=== PATIENT | male | born 1950 | race Caucasian/White ===

== ENCOUNTER 2023-02-28 07:06 | Day surgery (SDC) | payer MEDICARE ==
[2023-02-27 09:53] VITALS: BMI 28.8
[2023-02-28] MEDS ORDERED: EPINEPHrine 1 MG/ML AMP ONE (08:57)
[2023-02-28] MEDS ORDERED: PROPOFOL 20 ML ONE (08:58)
[2023-02-28] MEDS ORDERED: Ketamine 50 MG/ML (10ML VIAL) ONE (09:00)
[2023-02-28] MEDS ORDERED: Oxymetazoline HCl 0.05% ( 15 ML ) ONE (09:02)
== END 2023-02-28 11:00 | disposition home or self-care (01) ==
LOC: CSHSDC 07:06
PROVIDERS: ATTEND Otolaryngology Otolaryngic Allergy
PROC: 3E0F8GC Introduction of Other Therapeutic Substance into Respiratory Tract, Via Natural or Artificial Opening Endoscopic (ICD-10-PCS; principal; 2023-02-28)
DX: R49.0 Dysphonia (principal); J38.00 Paralysis of vocal cords and larynx, unspecified; E78.5 Hyperlipidemia, unspecified; K21.9 Gastro-esophageal reflux disease without esophagitis; I10 Essential (primary) hypertension; I25.10 Atherosclerotic heart disease of native coronary artery without angina pectoris; N18.9 Chronic kidney disease, unspecified; I12.9 Hypertensive chronic kidney disease with stage 1 through stage 4 chronic kidney disease, or unspecified chronic kidney disease; J45.909 Unspecified asthma, uncomplicated; J44.9 Chronic obstructive pulmonary disease, unspecified; G47.00 Insomnia, unspecified; Z88.0 Allergy status to penicillin; Z88.8 Allergy status to other drugs, medicaments and biological substances; Z79.899 Other long term (current) drug therapy
CPT/HCPCS: 31571; C1776; J0171; J2704